=== PATIENT | male | born 1985 | race Caucasian/White ===

== ENCOUNTER 2019-10-08 01:12 | Emergency (ER) | payer SELFPAY ==
[~2019-10-08] VITALS: Ht 180.3 cm; Wt 98.0 kg
[2019-10-08 01:15] VITALS: Ht 180.3 cm; Wt 98.0 kg
[2019-10-08 03:22] VITALS: BP 148/98
== END 2019-10-08 03:22 | disposition home or self-care (01) ==
LOC: ED 01:12
DX: R19.7 Diarrhea, unspecified (principal); R10.31 Right lower quadrant pain; R10.32 Left lower quadrant pain
CPT/HCPCS: U0003-CS